=== PATIENT | male | born 1970 | race Caucasian/White ===

== ENCOUNTER 2024-03-10 00:01 | Inpatient (IN) | payer OTHER ==
[~2024-03-10] VITALS: Ht 157.5 cm; Wt 65.3 kg
[2024-03-10 00:07] VITALS: BP_SYST 113; PULSE 89; RESP 17; TEMP 97.5; O2SAT 97
[2024-03-10] MEDS ORDERED: HYD500 PO ×2 (00:25→02:14)
[2024-03-10] MEDS ORDERED: AMPICILLIN SODIUM/SULBACTAM NA 3 GM VIAL ONE (01:32)
[2024-03-10] MEDS: AMPICILLIN SODIUM/SULBACTAM NA 3 GM in NS 100 ML IV ONE (02:01)
[2024-03-10 02:05] LABS: PLATELET COUNT (AUTO) 264 K/uL (130-430); RED BLOOD CELL COUNT(AUTO) 2.23 MIL/uL (4.2-6.2)
[2024-03-10 02:13] LABS: BASOPHILS # (AUTO) 0.1 K/uL (0.0-0.2); BASOPHILS % (AUTO) 0.7 % (0.0-2.0); EOSINOPHILS # (AUTO) 0.2 K/uL (0.0-0.4); HEMATOCRIT 24.2 % (36-54); HEMOGLOBIN 8.3 g/dL (14.0-18.0); LYMPHOCYTES # (AUTO) 2.9 K/uL (1.0-5.5); LYMPHOCYTES % (AUTO) 16.3 % (20.5-51.5); MEAN CORPUSCULAR HEMOGLOBIN 37 pg (27-31); MEAN CORPUSCULAR HGB CONC 34 % (32-36); MEAN CORPUSCULAR VOLUME 109 fL (79.0-98.0); MONOCYTES # (AUTO) 1.4 K/uL (0.0-1.0); MONOCYTES % (AUTO) 7.9 % (1.7-9.3); NEUTROPHILS # (AUTO) 13.1 K/uL (1.8-7.7); NEUTROPHILS % (AUTO) 74.1 % (40.0-70.0); RED CELL DISTRIBUTION WIDTH 18.1 % (9.0-15.0); WHITE BLOOD COUNT (AUTO) 17.6 K/uL (4.8-10.8)
[2024-03-10] MEDS ORDERED: ACET325T PO (02:14)
[2024-03-10] MEDS ORDERED: HYDR-3927 PO (02:14)
[2024-03-10] MEDS ORDERED: CYAN100010 PO (02:14)
[2024-03-10 02:20] LABS: ALBUMIN 2.8 g/dL (3.4-4.8); BILIRUBIN,DIRECT 1.2 mg/dL (0.0-0.3); CALCIUM 7.7 mg/dL (8.4-11.0); CREATININE 1.06 mg/dL (0.55-1.30); POTASSIUM 3.8 mmol/L (3.5-5.1); TOTAL BILIRUBIN 2.3 mg/dL (0.0-1.0); TOTAL PROTEIN, SERUM 8.4 g/dL (6.4-8.3)
[2024-03-10 02:58] LABS: BILIRUBIN,URINE NEGATIVE (NEGATIVE); BLOOD, URINE NEGATIVE (NEGATIVE); COLOR,URINE YELLOW (YELLOW); GLUCOSE,URINE NEGATIVE (NEGATIVE); KETONES,URINE NEGATIVE (NEGATIVE); LEUKOCYTE ESTERASE ,URINE NEGATIVE (NEGATIVE); NITRITE, URINE NEGATIVE (NEGATIVE); PH,URINE 5.5 (5.0-8.0); PROTEIN URINE NEGATIVE (NEGATIVE)
[2024-03-10 03:01] LABS: CLARITY/URINE CLEAR (CLEAR)
[2024-03-10 13:00] VITALS: BP_SYST 105; PULSE 87; RESP 18; TEMP 97.8; O2SAT 96; O2SAT 98
[2024-03-10] MEDS ORDERED: ONDANSETRON HCL 4 MG/2 ML VIAL IVP PRN (14:45)
[2024-03-10] MEDS ORDERED: LORazepam 2 MG/ML VIAL IVP PRN (14:45)
[2024-03-10] MEDS ORDERED: NALOXONE HCL 0.4 MG/ML AMP (NARCAN) IVP PRN ×2 (14:45)
[2024-03-10] MEDS ORDERED: HYDROcodone/ACETAMIN 5-325 MG TAB (NORCO/ VICODIN) PO PRN (14:45)
[2024-03-10] MEDS ORDERED: HYDROcodone/ACETAMIN 10-325 MG TAB PO PRN (14:45)
[2024-03-10 15:02] VITALS: BP_SYST 117; PULSE 106; RESP 16; TEMP 102.1; O2SAT 98
[2024-03-10] MEDS: ACETAMINOPHEN 325 MG TABLET PO PRN (15:49)
[2024-03-10 16:49] VITALS: BP_SYST 109; PULSE 88; RESP 18; TEMP 98.8; O2SAT 97
[2024-03-10] MEDS: AMPICILLIN SODIUM/SULBACTAM NA 1.5 GM in NS 50 ML IV SCH (17:51)
[2024-03-10 20:00] VITALS: BP_SYST 111; PULSE 88; RESP 18; TEMP 99; O2SAT 97
[2024-03-10] MEDS: NORMAL SALINE 5 ML DISP.SYRIN IVF SCH (21:52)
[2024-03-11 00:15] VITALS: BP_SYST 119; PULSE 85; RESP 18; TEMP 98.4; O2SAT 99
[2024-03-11 04:37] LABS: BASOPHILS # (AUTO) 0.1 K/uL (0.0-0.2); BASOPHILS % (AUTO) 0.5 % (0.0-2.0); EOSINOPHILS # (AUTO) 0.3 K/uL (0.0-0.4); EOSINOPHILS % (AUTO) 2.4 % (0.0-4.0); LYMPHOCYTES # (AUTO) 2.6 K/uL (1.0-5.5); LYMPHOCYTES % (AUTO) 18.2 % (20.5-51.5); MEAN CORPUSCULAR HEMOGLOBIN 37 pg (27-31); MEAN CORPUSCULAR HGB CONC 34 % (32-36); MEAN CORPUSCULAR VOLUME 110 fL (79.0-98.0); MONOCYTES # (AUTO) 1.7 K/uL (0.0-1.0); MONOCYTES % (AUTO) 11.7 % (1.7-9.3); NEUTROPHILS # (AUTO) 9.7 K/uL (1.8-7.7); NEUTROPHILS % (AUTO) 67.2 % (40.0-70.0); PLATELET COUNT (AUTO) 294 K/uL (130-430); RED CELL DISTRIBUTION WIDTH 19.1 % (9.0-15.0); WHITE BLOOD COUNT (AUTO) 14.4 K/uL (4.8-10.8)
[2024-03-11 04:49] LABS: CALCIUM 7.9 mg/dL (8.4-11.0); CREATININE 0.87 mg/dL (0.55-1.30); POTASSIUM 3.9 mmol/L (3.5-5.1)
[2024-03-11 05:07] LABS: HEMATOCRIT 20.9 % (36-54)
[2024-03-11 08:12] VITALS: BP_SYST 132; PULSE 95; RESP 18; TEMP 99.5; O2SAT 95
[2024-03-11] MEDS: HYDROXYUREA 500 MG CAPSULE (HYDREA) PO SCH (09:17)
[2024-03-11] MEDS: CYANOCOBALAMIN (VITAMIN B-12) 1,000 MCG TABLET PO SCH (09:17)
[2024-03-11 12:55] VITALS: BP_SYST 117; PULSE 86; RESP 18; TEMP 99.1; O2SAT 97
[2024-03-11 16:55] VITALS: BP_SYST 114; PULSE 86; RESP 18; TEMP 99.6; O2SAT 98
[2024-03-11 20:20] VITALS: BP_SYST 120; PULSE 88; RESP 17; TEMP 99; O2SAT 96
[2024-03-11 20:25] VITALS: O2SAT 96
[2024-03-12] VITALS (8 sets, daily range): BP systolic 116–128; PULSE 76–92; RESP 16–19; TEMP 97.2–99; O2SAT 95–99
[2024-03-12 06:47] LABS: CALCIUM 8.1 mg/dL (8.4-11.0); CREATININE 0.82 mg/dL (0.55-1.30); POTASSIUM 3.9 mmol/L (3.5-5.1)
[2024-03-12 06:51] LABS: ERYTHROCYTE SEDIMENTATION RATE 116 MM/HR (0-15)
[2024-03-12 07:09] LABS: HEMATOCRIT 22.1 % (36-54); HEMOGLOBIN 7.4 g/dL (14.0-18.0); MEAN CORPUSCULAR HEMOGLOBIN 37 pg (27-31); MEAN CORPUSCULAR HGB CONC 34 % (32-36); MEAN CORPUSCULAR VOLUME 111 fL (79.0-98.0); PLATELET COUNT (AUTO) 347 K/uL (130-430); RED CELL DISTRIBUTION WIDTH 18.8 % (9.0-15.0); WHITE BLOOD COUNT (AUTO) 13.1 K/uL (4.8-10.8)
[2024-03-12 08:05] LABS: ANISOCYTOSIS 3+; BASOPHILS % (MANUAL) 0 % (0-2); EOSINOPHILS % (MANUAL) 5 % (0-7); HYPOCHROMASIA 1+; LYMPHOCYTES % (MANUAL) 38 % (20-46); MONOCYTES % (MANUAL) 9 % (0-11); PLATELET ESTIMATE ADEQUATE (ADEQUATE)
[2024-03-12 08:06] LABS: HELMET CELLS FEW; OVALOCYTES FEW; POLYCHROMASIA 1+; TARGET CELLS FEW; TEAR DROP CELLS FEW
[2024-03-12] MEDS: FOLIC ACID 1 MG TABLET PO SCH (09:09)
[2024-03-13 00:10] VITALS: BP_SYST 116; PULSE 89; RESP 18; TEMP 98; O2SAT 98
[2024-03-13 06:16] LABS: TOTAL IRON BIND. CAPACITY 161 ug/dL (250-450)
[2024-03-13 11:05] VITALS: BP_SYST 100; PULSE 99; RESP 14; TEMP 97.9; O2SAT 100
[2024-03-13 16:06] VITALS: BP_SYST 102; PULSE 99; RESP 14; TEMP 97.9; O2SAT 100
[2024-03-13 19:33] VITALS: O2SAT 98
[2024-03-13 20:00] VITALS: BP_SYST 139; PULSE 96; RESP 15; TEMP 97.4; O2SAT 96
[2024-03-14] VITALS (8 sets, daily range): BP systolic 108–135; PULSE 74–96; RESP 16–18; TEMP 96.4–98.7; O2SAT 96–99
[2024-03-14 05:56] LABS: BASOPHILS # (AUTO) 0.1 K/uL (0.0-0.2); BASOPHILS % (AUTO) 0.7 % (0.0-2.0); EOSINOPHILS # (AUTO) 0.6 K/uL (0.0-0.4); EOSINOPHILS % (AUTO) 4.8 % (0.0-4.0); HEMATOCRIT 22.6 % (36-54); HEMOGLOBIN 7.6 g/dL (14.0-18.0); LYMPHOCYTES # (AUTO) 3.3 K/uL (1.0-5.5); LYMPHOCYTES % (AUTO) 27.1 % (20.5-51.5); MEAN CORPUSCULAR HEMOGLOBIN 36 pg (27-31); MEAN CORPUSCULAR HGB CONC 33 % (32-36); MEAN CORPUSCULAR VOLUME 108 fL (79.0-98.0); MONOCYTES # (AUTO) 1.8 K/uL (0.0-1.0); MONOCYTES % (AUTO) 14.5 % (1.7-9.3); NEUTROPHILS # (AUTO) 6.4 K/uL (1.8-7.7); PLATELET COUNT (AUTO) 491 K/uL (130-430); RED BLOOD CELL COUNT(AUTO) 2.09 MIL/uL (4.2-6.2); RED CELL DISTRIBUTION WIDTH 19.2 % (9.0-15.0); WHITE BLOOD COUNT (AUTO) 12.1 K/uL (4.8-10.8)
[2024-03-14 06:29] LABS: ALBUMIN 2.2 g/dL (3.4-4.8); CALCIUM 7.5 mg/dL (8.4-11.0); CREATININE 0.75 mg/dL (0.55-1.30); POTASSIUM 3.9 mmol/L (3.5-5.1); TOTAL PROTEIN, SERUM 7.9 g/dL (6.4-8.3)
[2024-03-14 06:36] LABS: ERYTHROCYTE SEDIMENTATION RATE 124 MM/HR (0-15)
[2024-03-14 07:15] LABS: NEUTROPHILS % (AUTO) 52.9 % (40.0-70.0)
[2024-03-14] MEDS ORDERED: FOLI-43 PO (15:19)
[2024-03-14] MEDS: ACETAMINOPHEN 325 MG TABLET PO PRN (16:17)
[2024-03-14] MEDS ORDERED: LEVO750T64 PO (17:48)
[2024-03-14] MEDS ORDERED: VANC750F IV (17:49)
== END 2024-03-14 20:00 | DRG 872 ==
LOC: EDSEX 00:01 → SED 00:01 → SMU 06:38
PROVIDERS: ADMIT Preventive Medicine Preventive Medicine/Occupational Environmental Medicine; ATTEND Preventive Medicine Preventive Medicine/Occupational Environmental Medicine
PROC: 05HY33Z Insertion of Infusion Device into Upper Vein, Percutaneous Approach (ICD-10-PCS; principal; 2024-03-14)
DX: A41.9 Sepsis, unspecified organism (principal); L03.116 Cellulitis of left lower limb; E44.0 Moderate protein-calorie malnutrition; L97.909 Non-pressure chronic ulcer of unspecified part of unspecified lower leg with unspecified severity; D57.1 Sickle-cell disease without crisis; E83.51 Hypocalcemia; D64.9 Anemia, unspecified; D75.839 Thrombocytosis, unspecified; R73.9 Hyperglycemia, unspecified; E88.09 Other disorders of plasma-protein metabolism, not elsewhere classified; E80.6 Other disorders of bilirubin metabolism; I73.9 Peripheral vascular disease, unspecified; Z68.26 Body mass index [BMI] 26.0-26.9, adult; Z79.899 Other long term (current) drug therapy; R74.01 Elevation of levels of liver transaminase levels
CPT/HCPCS: 36415; 80048; 80053; 80076; 81001; 81003; 83540; 83550; 83605; 85007; 85025; 85027; 85044; 85651; 87040; 87081; 93971; 96365; 99285; J0295